=== PATIENT | male | born 1985 | race Two or more races ===

== ENCOUNTER 2023-01-30 01:20 | Emergency (ER) | payer OTHER ==
[~2023-01-30] VITALS: Ht 182.9 cm; Wt 77.1 kg
[2023-01-30] MEDS ORDERED: KETO10TA2 PO (06:24)
[2023-01-30] MEDS ORDERED: ORPHENADRINE C100 MG PO (06:24)
== END 2023-01-30 06:37 | disposition home or self-care (01) ==
LOC: ER 01:20
DX: M54.59 Other low back pain (principal)